=== PATIENT | female | born 1960 | race Caucasian/White ===

== ENCOUNTER 2019-05-26 14:39 | Outpatient (CLI) | payer OTHER, SELFPAY ==
--- NOTE | 2019-05-26 15:02 | XR_ITS ---
WS: [id number] XR foot LT min 3V* [id number] REASON FOR EXAM: PAIN L FOOT ANKLE/CONTUSION FINDINGS: The phalanges, metatarsals, tarsals show normal appearance. There is no evidence of fractur es or other dyscrasias. The calcaneus appears to be normal with no fractures no spurs . XR/XR foot LT min 3V* [id number] IMPRESSION: Negative left foot.
--- NOTE | 2019-05-26 15:02 | XR_ITS ---
WS: [id number] XR ankle LT min 3V* [id number] REASON FOR EXAM: PAIN L FOOT ANKLE FINDINGS: The ankle mortise is normal. The tibia, fibula, and talus show no fractures. The posterior shelf of the tibia was intact. XR/XR ankle LT min 3V* [id number] IMPRESSION: Negative left ankle.
== END 2019-05-26 14:40 | disposition home or self-care (01) ==
LOC: RAD 14:50
PROVIDERS: Visit Provider Family Medicine
DX: M79.672 Pain in left foot (principal)
CPT/HCPCS: 73610; 73630